=== PATIENT | male | born 1950 | race Caucasian/White ===

== ENCOUNTER 2018-05-26 15:59 | Emergency (ER) | payer MEDICARE ==
[~2018-05-26] VITALS: Ht 188 cm; Wt 95.5 kg
[2018-05-26 16:03] VITALS: Ht 188 cm; Wt 95.5 kg
[2018-05-26] MEDS ORDERED: EC-NAPROSYN500 MG PO (17:49)
[2018-05-26 18:12] VITALS: BP 140/74
== END 2018-05-26 18:12 | disposition home or self-care (01) ==
LOC: D.ER 15:59
DX: S01.81XA Laceration without foreign body of other part of head, initial encounter (principal); W18.09XA Striking against other object with subsequent fall, initial encounter; Y93.89 Activity, other specified; Y92.89 Other specified places as the place of occurrence of the external cause; S86.912A Strain of unspecified muscle(s) and tendon(s) at lower leg level, left leg, initial encounter

== ENCOUNTER 2018-07-27 15:28 | Emergency (ER) | payer MEDICARE ==
[~2018-07-27] VITALS: Ht 188 cm; Wt 96.4 kg
[~2018-07-27 15:28] MED LIST: EC-NAPROSYN500 MG PO
[2018-07-27 15:36] VITALS: Ht 188 cm; Wt 96.4 kg
[2018-07-27] MEDS ORDERED: [UNRECOGNIZED DRUG - OTHER] PO (15:46)
[2018-07-27 16:39] LABS: BASOPHILS 0.4 % (0-2); EOSINOPHILS 2.3 % (0-7); HEMATOCRIT 40.3 % (42.0-54.0); HEMOGLOBIN 13.9 g/dL (13.5-17.5); IMMATURE GRANULOCYTES 0.2 % (0-5); LYMPHOCYTES 20.5 % (15-50); MCH 29.3 pg (26.0-34.0); MCHC 34.5 g/dL (31.0-37.0); MCV 84.8 fL (80.0-100.0); NEUTROPHILS 67.6 % (40-80); PLATELET COUNT 182 10x3/uL (130-400); RBC 4.75 10x6/uL (4.20-6.10); RDW 13.3 % (11.5-14.5); WBC 5.7 10x3/uL (4.8-10.8)
[2018-07-27 17:02] LABS: CALC OSMOLALITY 290 mosm/kg (275-300); CALCIUM 8.6 mg/dL (8.5-10.1); CARBON DIOXIDE 26.8 mmol/L (21.0-32.0); CHLORIDE - SERUM 108 mmol/L (98-107); GLUCOSE 84 mg/dL (74-106); POTASSIUM - SERUM 3.9 mmol/L (3.5-5.1); SODIUM 145 mmol/L (136-145); UREA NITROGEN 22 mg/dL (7-18); eGFR NON AFRICAN AMERICAN 79 mL/min (90-120)
[2018-07-27] MEDS ORDERED: VISTARIL50 MG PO (17:31)
[2018-07-27 17:55] VITALS: BP 154/84
== END 2018-07-27 17:55 | disposition home or self-care (01) ==
LOC: D.ER 15:28
PROVIDERS: Family Medicine
DX: L25.9 Unspecified contact dermatitis, unspecified cause (principal); R07.89 Other chest pain